=== PATIENT | female | born 1955 | race Caucasian/White ===

== ENCOUNTER 2018-05-25 10:14 | Inpatient (IN) ==
[2018-05-25] MEDS ORDERED: *HR* OxyCODONE/APAP 7.5/325 TABLET PO PRN (19:52)
[2018-05-25] MEDS: Sulfamethoxazole/Trimeth DS 1 EACH TABLET PO SCH (20:30)
[2018-05-25] MEDS: Baclofen 10 MG TABLET PO SCH (20:30)
[2018-05-26] MEDS: *HR* OxyCODONE/APAP 7.5/325 TABLET PO PRN ×4 (02:17→20:42)
[2018-05-26] MEDS: Baclofen 10 MG TABLET PO SCH ×3 (08:27→20:41)
[2018-05-26] MEDS: Sulfamethoxazole/Trimeth DS 1 EACH TABLET PO SCH ×2 (08:28→20:41)
--- NOTE | 2018-05-26 15:46 | Internal Med History&Physical ---
Date of Encounter: 05/26/18 Time of Encounter: 15:15 Assessment and Plan (1) Intertrochanteric fracture of right femur Current visit: No Status: Acute Status post intramedullary nail repair. PT and OT evaluations will be done. Lovenox be given for DVT prophylaxis. Qualifiers: Encounter type: initial encounter Fracture type: closed Fracture alignment: displaced Qualified Code(s): S72.141A - Displaced intertrochanteric fracture of right femur, initial encounter for closed fracture (2) Atrial fibrillation Current visit: No Status: Resolved Remains in NSR on sotalol. Qualifiers: Atrial fibrillation type: unspecified Qualified Code(s): I48.91 - Unspecified atrial fibrillation (3) Anemia Current visit: Yes Status: Acute Hemoglobin was normal prior to surgery. Will monitor CBC. Qualifiers: Anemia type: unspecified type Qualified Code(s): D64.9 - Anemia, unspecified (4) Hypothyroidism Current visit: No Status: Chronic Check TSH in a.m. Qualifiers: Hypothyroidism type: postablative Qualified Code(s): E89.0 - Postprocedural hypothyroidism Internal Medicine - H&P: HPI Chief complaint: Hip fracture Admitted From: Hospital to Hospital Transfer Plans for Post Hospital Care: Home History of present illness: Ms. Kothari is a 63 year old female who was hospitalized at [facility] May 22- after a fall with right intertrochanteric hip fracture. She underwent intramedullary nail fixation repair by 05/23/2018. Her postop course was unremarkable and and she was stable for discharge to [facility] swing bed May 25 for ongoing care needs. Her orthopedic history is significant for previous right total shoulder replacement. She has DJD but denies gout or other bone joint or muscle disorders. Past Med Surg Social Fam HX - Past Medical History Medical history: atrial fibrillation, GERD, migraine, thyroid disease, other Psychiatric history: anxiety, depression - Past Surgical History Surgical History: hip replacement Additional surgical history: Lap Band - Social History Smoking Status: Never smoker Smokeless Tobacco Status: No Alcohol use: none Drug use: none - Family History Mother Living Status: Hx Family Endocrine Disorder: Yes (DM) Internal Medicine - H&P: Meds Levothyroxine [Synthroid] 100 mcg PO 0630 04/06/17 [History] Omeprazole [PriLOSEC] 20 mg PO BID 04/06/17 [History] Sotalol [Betapace] 80 mg PO Q12H 04/06/17 [History] Baclofen [Lioresal] 10 mg PO TID 02/19/18 [History] Nabumetone 750 mg PO BID 02/19/18 [History] Calcium Carbonate [Tums] 500 mg PO Q8HR PRN #60 tab.chew 05/25/18 [Rx] Oxycodone HCl/Acetaminophen [Percocet 7.5-325 mg Tablet] 1 tab PO DAILY PRN 5 Days #14 tablet 05/25/18 [Rx] Sulfamethoxazole/Trimeth DS [Bactrim Ds] 1 each PO BID #10 tablet 05/25/18 [Rx] Zolpidem [Ambien] 10 mg PO HS 7 Days #7 tablet 05/25/18 [Rx] 3 Allergy/AdvReac Type Severity Reaction Status Date / Time latex Allergy Itching Verified 02/20/18 00:13 Penicillins AdvReac Redness of Verified 02/20/18 00:13 Skin All Systems PM: A 10-system review of systems was performed and is negative for pertinent findings except as documented above in the HPI. Review of systems: Gen.: Her weight has been stable at approximately 86 kg in the past year Cardiovascular: She has history of atrial fibrillation but was electrically cardioverted and has remained in NSR using sotalol. She denies hypertension MO heart failure angina DVT or pulmonary embolus. Respiratory: She is a lifelong nonsmoker and denies chronic lung disease GI: She had remote gastric bypass surgery. She had abdominal wall hernia surgical repair. She denies disorders of her liver gallbladder or exocrine pancreas. : She denies hematuria dysuria or kidney stones Neurologic: She denies large distribution strokes or seizures. Endocrine: She had hyperthyroidism and was treated with JOSHUA with resultant hypothyroidism. She is now on Synthroid. She denies diabetes or hyperlipidemia. Hematology/oncology: She denies blood disorders cancers or anemia Psychiatric: She has anxiety but denies depression or other mental health issues [place] skeletal: As per history of present illness - Constitutional Vitals: Temp Pulse Resp BP Pulse Ox 98.3 F 69 15 123/81 90 05/26/18 06:14 05/26/18 06:14 05/26/18 06:14 05/26/18 06:14 05/26/18 06:14 Exam: Gen.: She is a well developed overweight female resting comfortably in a chair at bedside. HEENT: Head is atraumatic and normocephalic. Eyes: EOMI. There is no scleral icterus. Mouth: Mucosa is moist. Neck: Supple and nontender. There is no thyromegaly or adenopathy noted. Heart: Regular without murmurs gallops or ectopics Lungs: No wheezes or crackles are heard. Abdomen: Soft and nontender. No masses or guarding are noted. Extremities: She has a surgical dressing over the right lateral hip area. There is no cyanosis edema or clubbing noted. Dorsalis pedis and posttibial pulses are trace palpable bilaterally. Neurologic: Mental status: She is talkative and a good historian. Cranial nerves: Smile is symmetric. Forehead wrinkles bilaterally. Tongue protrudes midline. EOMI. Motor: There is no pronator drift. Cerebellar: Finger to nose is intact bilaterally. Skin: Warm and dry
[2018-05-26] MEDS: Acetaminophen 325 MG TABLET PO SCH (17:58)
[2018-05-27] MEDS: Acetaminophen 325 MG TABLET PO SCH ×4 (00:18→17:03)
[2018-05-27] MEDS: *HR* Enoxaparin 40 MG/0.4 ML SYRINGE SQ SCH (06:03)
[2018-05-27 06:15] LABS: Basophils % 0.4 %; Eosinophils # 0.4 K/mcL (0.0-0.6); Eosinophils % 4.9 %; Hematocrit 33.5 % (35.3-44.9); Hemoglobin 10.7 g/dL (11.5-15.4); Immature Granulocytes % 0.3 % (0-4); Lymphocytes # 1.9 K/mcL (0.6-4.6); Lymphocytes % 21.4 %; Mean Corpuscular HGB Conc 31.9 g/dL (31.6-35.5); Mean Corpuscular Hemoglobin 28.7 pg (28.0-33.3); Mean Corpuscular Volume 89.8 fL (83.0-100.0); Mean Platelet Volume 11.2 fL (9.4-12.4); Monocytes # 0.7 K/mcL (0.0-1.3); Monocytes % 7.8 %; Neutrophils # 5.8 K/mcL (1.6-8.9); Platelet Count 245 K/mcL (140-400); Red Blood Count 3.73 M/mcL (3.82-4.97); Red Cell Distribution Width 15.7 % (11.5-14.5); Segmented Neutrophils % 65.2 %
[2018-05-27 06:36] LABS: BUN/Creatinine Ratio 20 (6-26); Blood Urea Nitrogen 19 mg/dL (8-23); Calcium 8.6 mg/dL (8.6-10.3); Carbon Dioxide 31 mEq/L (23-29); Chloride 101 mEq/L (98-107); Glucose 105 mg/dL (70-105); Osmolality,Calculated 285 (280-300); Potassium 4.6 mEq/L (3.5-5.1); Sodium 136 mEq/L (136-145); eGFR For Non-African Americans > 60 (> 60)
[2018-05-27 06:46] LABS: Thyroid Stimulating Hormone 2.979 mcIU/mL (0.340-5.600)
[2018-05-27] MEDS: Sulfamethoxazole/Trimeth DS 1 EACH TABLET PO SCH ×2 (08:05→20:05)
[2018-05-27] MEDS: Baclofen 10 MG TABLET PO SCH ×3 (08:06→20:05)
[2018-05-27 10:20] LABS: % Iron Saturation 21 % (15-50); Iron 75 mcg/dL (50-170); Transferrin 250 mg/dL (203-362)
[2018-05-27 10:39] LABS: Ferritin 32 ng/mL (10-120)
[2018-05-27 10:44] LABS: Folate 8.4 ng/mL (3.0-16.0)
[2018-05-27] MEDS: *HR* OxyCODONE/APAP 7.5/325 TABLET PO PRN ×2 (13:15→20:05)
--- NOTE | 2018-05-27 13:38 | Internal Med Progress Note ---
Date of Encounter: 05/27/18 Time of Encounter: 13:30 - Assessment and plan (1) Intertrochanteric fracture of right femur Current Visit: No Status: Acute Assessment and plan: May 27. Status post intramedullary nail repair. Continue PT and OT intervention with Lovenox. Qualifiers: Encounter type: initial encounter Fracture type: closed Fracture alignment: displaced Qualified Code(s): S72.141A - Displaced intertrochanteric fracture of right femur, initial encounter for closed fracture (2) Atrial fibrillation Current Visit: No Status: Resolved Assessment and plan: May 27. Continue sotalol. Qualifiers: Atrial fibrillation type: unspecified Qualified Code(s): I48.91 - Unspecified atrial fibrillation (3) Anemia Current Visit: Yes Status: Acute Assessment and plan: May 27. Hemoglobin stable at 10.7. Continue to monitor. Qualifiers: Anemia type: unspecified type Qualified Code(s): D64.9 - Anemia, unspecified (4) Hypothyroidism Current Visit: No Status: Chronic Assessment and plan: May 27. TSH normal at 2.979. Continue Synthroid. Qualifiers: Hypothyroidism type: postablative Qualified Code(s): E89.0 - Postprocedural hypothyroidism - Subjective Interval history: May 27. She has no new complaints. She states her pain continues to lessen. She has ambulated to the bathroom today. - Constitutional Vitals: Temp Pulse Resp BP Pulse Ox 98.6 F 64 18 157/74 96 05/27/18 11:13 05/27/18 11:13 05/27/18 11:13 05/27/18 11:13 05/27/18 11:13 Exam: She is resting comfortably in bed and appears in no acute distress. Her affect is bright and cheerful. I reviewed her medications and lab results. Internal Medicine: Result - Labs CBC & Chem 7: 05/27/18 05:30 05/27/18 05:30 Labs: Short CBC 05/27/18 Range/Units 05:30 WBC 9.0 (4.3-11.1) K/mcL Hgb 10.7 L (11.5-15.4) g/dL Hct 33.5 L (35.3-44.9) % Plt Count 245 (140-400) K/mcL Neutrophils # 5.8 (1.6-8.9) K/mcL BMP 05/27/18 05:30 Sodium 136 Potassium 4.6 Chloride 101 Carbon Dioxide 31 H BUN 19 Creatinine 0.94 Glucose 105 Calcium 8.6 Consult Discharge Plan - Plan Referrals: Tory Prince MD [Primary Care Provider] - 1 week
[2018-05-28] MEDS: Acetaminophen 325 MG TABLET PO SCH ×4 (02:09→17:24)
[2018-05-28] MEDS: *HR* OxyCODONE/APAP 7.5/325 TABLET PO PRN ×4 (02:10→20:19)
[2018-05-28] MEDS: *HR* Enoxaparin 40 MG/0.4 ML SYRINGE SQ SCH (06:12)
[2018-05-28] MEDS: Baclofen 10 MG TABLET PO SCH ×3 (08:16→20:20)
[2018-05-28] MEDS: Sulfamethoxazole/Trimeth DS 1 EACH TABLET PO SCH ×2 (08:16→20:19)
[2018-05-29] MEDS: *HR* OxyCODONE/APAP 7.5/325 TABLET PO PRN ×3 (03:22→16:40)
[2018-05-29] MEDS: Acetaminophen 325 MG TABLET PO SCH ×4 (03:25→16:39)
[2018-05-29] MEDS: *HR* Enoxaparin 40 MG/0.4 ML SYRINGE SQ SCH (06:17)
[2018-05-29] MEDS: Baclofen 10 MG TABLET PO SCH ×3 (08:27→21:09)
[2018-05-29] MEDS: Sulfamethoxazole/Trimeth DS 1 EACH TABLET PO SCH (08:27)
--- NOTE | 2018-05-29 20:06 | Internal Med Progress Note ---
Date of Encounter: 05/29/18 Time of Encounter: 19:55 - Assessment and plan (1) Intertrochanteric fracture of right femur Current Visit: No Status: Acute Assessment and plan: May 27. Status post intramedullary nail repair. Continue PT and OT intervention with Lovenox. Qualifiers: Encounter type: initial encounter Fracture type: closed Fracture alignment: displaced Qualified Code(s): S72.141A - Displaced intertrochanteric fracture of right femur, initial encounter for closed fracture (2) Atrial fibrillation Current Visit: No Status: Resolved Assessment and plan: May 27. Continue sotalol. Qualifiers: Atrial fibrillation type: unspecified Qualified Code(s): I48.91 - Unspecified atrial fibrillation (3) Anemia Current Visit: Yes Status: Acute Assessment and plan: May 27. Hemoglobin stable at 10.7. Continue to monitor. Qualifiers: Anemia type: unspecified type Qualified Code(s): D64.9 - Anemia, unspecified (4) Hypothyroidism Current Visit: No Status: Chronic Assessment and plan: May 27. TSH normal at 2.979. Continue Synthroid. Qualifiers: Hypothyroidism type: postablative Qualified Code(s): E89.0 - Postprocedural hypothyroidism - Subjective Interval history: May 27. She has no new complaints. She states her pain continues to lessen. She has ambulated to the bathroom today. May 29. She reports pain in her right knee. She was told by the orthopedist she would need knee replacement because of severe DJD. She sustained hip fracture before the knee surgery could be done. - Constitutional Vitals: Temp Pulse Resp BP Pulse Ox 97.2 F L 93 18 140/79 96 05/29/18 19:00 05/29/18 19:00 05/29/18 19:00 05/29/18 19:00 05/29/18 19:00 Exam: She is resting comfortably in a chair at bedside. Her affect is overall cheerful. I reviewed her medications and lab results. Internal Medicine: Result - Labs CBC & Chem 7: 05/27/18 05:30 05/27/18 05:30 Consult Discharge Plan - Plan Referrals: Tory Prince MD [Primary Care Provider] - 1 week
[2018-05-29] MEDS: traZODone 50 MG TABLET PO SCH (21:09)
[2018-05-30] MEDS: *HR* OxyCODONE/APAP 7.5/325 TABLET PO PRN ×5 (00:27→20:11)
[2018-05-30] MEDS: Acetaminophen 325 MG TABLET PO SCH ×4 (02:10→17:55)
[2018-05-30] MEDS: *HR* Enoxaparin 40 MG/0.4 ML SYRINGE SQ SCH (05:30)
[2018-05-30] MEDS: Baclofen 10 MG TABLET PO SCH ×3 (08:15→20:11)
[2018-05-30] MEDS: traZODone 50 MG TABLET PO SCH (20:11)
[2018-05-31] MEDS: Acetaminophen 325 MG TABLET PO SCH ×4 (00:16→17:47)
[2018-05-31] MEDS: *HR* OxyCODONE/APAP 7.5/325 TABLET PO PRN ×4 (03:39→20:28)
[2018-05-31 05:46] LABS: Basophils # 0.1 K/mcL (0.0-0.2); Basophils % 0.6 %; Eosinophils # 0.5 K/mcL (0.0-0.6); Eosinophils % 4.5 %; Hematocrit 34.5 % (35.3-44.9); Hemoglobin 11.2 g/dL (11.5-15.4); Immature Granulocytes % 0.7 % (0-4); Lymphocytes # 1.9 K/mcL (0.6-4.6); Lymphocytes % 17.4 %; Mean Corpuscular HGB Conc 32.5 g/dL (31.6-35.5); Mean Corpuscular Hemoglobin 29.8 pg (28.0-33.3); Mean Corpuscular Volume 91.8 fL (83.0-100.0); Mean Platelet Volume 10.7 fL (9.4-12.4); Monocytes # 0.8 K/mcL (0.0-1.3); Monocytes % 7.6 %; Neutrophils # 7.4 K/mcL (1.6-8.9); Platelet Count 282 K/mcL (140-400); Red Blood Count 3.76 M/mcL (3.82-4.97); Red Cell Distribution Width 16.5 % (11.5-14.5); Segmented Neutrophils % 69.2 %
[2018-05-31] MEDS: *HR* Enoxaparin 40 MG/0.4 ML SYRINGE SQ SCH (06:02)
[2018-05-31 06:18] LABS: Alanine Aminotransferase 13 Units/L (7-52); Alkaline Phosphatase 115 Units/L (34-104); Aspartate Amino Transferase 22 Units/L (13-39); BUN/Creatinine Ratio 26 (6-26); Bilirubin,Total 0.5 mg/dL (0.3-1.0); Blood Urea Nitrogen 24 mg/dL (8-23); Calcium 8.7 mg/dL (8.6-10.3); Carbon Dioxide 28 mEq/L (23-29); Chloride 100 mEq/L (98-107); Globulin 2.9 g/dL (2.4-3.5); Glucose 115 mg/dL (70-105); Osmolality,Calculated 281 (280-300); Potassium 4.8 mEq/L (3.5-5.1); Sodium 133 mEq/L (136-145); Total Protein 5.9 g/dL (6.4-8.9); eGFR For Non-African Americans > 60 (> 60)
[2018-05-31] MEDS: Baclofen 10 MG TABLET PO SCH ×3 (08:30→20:18)
[2018-05-31] MEDS: traZODone 50 MG TABLET PO SCH (20:19)
[2018-06-01] MEDS: *HR* OxyCODONE/APAP 7.5/325 TABLET PO PRN ×6 (00:43→21:36)
[2018-06-01] MEDS: Acetaminophen 325 MG TABLET PO SCH ×4 (02:45→18:25)
[2018-06-01] MEDS: *HR* Enoxaparin 40 MG/0.4 ML SYRINGE SQ SCH (05:53)
[2018-06-01] MEDS: Baclofen 10 MG TABLET PO SCH ×3 (08:39→21:35)
--- NOTE | 2018-06-01 11:09 | Internal Med Progress Note ---
Date of Encounter: 06/01/18 Time of Encounter: 11:00 - Assessment and plan (1) Intertrochanteric fracture of right femur Current Visit: No Status: Acute Assessment and plan: May 27. Status post intramedullary nail repair. Continue PT and OT intervention with Lovenox. Qualifiers: Encounter type: initial encounter Fracture type: closed Fracture alignment: displaced Qualified Code(s): S72.141A - Displaced intertrochanteric fracture of right femur, initial encounter for closed fracture (2) Atrial fibrillation Current Visit: No Status: Resolved Assessment and plan: May 27. Continue sotalol. Qualifiers: Atrial fibrillation type: unspecified Qualified Code(s): I48.91 - Unspecified atrial fibrillation (3) Anemia Current Visit: Yes Status: Acute Assessment and plan: May 27. Hemoglobin stable at 10.7. Continue to monitor. June 01. Hemoglobin improved to 11.2. Continue to monitor. Qualifiers: Anemia type: unspecified type Qualified Code(s): D64.9 - Anemia, unspecified (4) Hypothyroidism Current Visit: No Status: Chronic Assessment and plan: May 27. TSH normal at 2.979. Continue Synthroid. Qualifiers: Hypothyroidism type: postablative Qualified Code(s): E89.0 - Postprocedural hypothyroidism (5) Knee pain, right Current Visit: No Status: Chronic Assessment and plan: June 01. Continue Percocet and Relafen. Will add BenGay and Lidoderm patch to knee. Qualifiers: Chronicity: chronic Qualified Code(s): M25.561 - Pain in right knee; G89.29 - Other chronic pain (6) Anxiety Current Visit: Yes Status: Acute Assessment and plan: June 01. Add Ativan prn. - Subjective Interval history: May 27. She has no new complaints. She states her pain continues to lessen. She has ambulated to the bathroom today. May 29. She reports pain in her right knee. She was told by the orthopedist she would need knee replacement because of severe DJD. She sustained hip fracture before the knee surgery could be done. June 01. She saw the orthopedist yesterday and received a cortisone injection in the right knee. I was told by nursing that she is now nonweightbearing because of right knee deterioration. She did not know the duration of nonweightbearing status. She is still having significant pain in the knee intermittently. She complains of being anxious and states she took Ativan prior to hospitalization for hip fracture repair. - Constitutional Vitals: Temp Pulse Resp BP Pulse Ox 98.6 F 66 18 135/69 94 06/01/18 07:15 06/01/18 07:15 06/01/18 07:15 06/01/18 07:15 06/01/18 09:37 Exam: She is resting comfortably in bed and appears in no severe distress at present time. She is occasional sad and emotional in our discussion. I reviewed her medications and lab results. Internal Medicine: Result - Labs CBC & Chem 7: 05/31/18 05:41 05/31/18 05:41 Consult Discharge Plan - Plan Referrals: Tory Prince MD [Primary Care Provider] - 1 week
[2018-06-01] MEDS: *HR* LORazepam 0.5 MG TABLET PO PRN ×2 (12:11→20:07)
[2018-06-01] MEDS: Methyl Salicylate/Menthol 28 GM TUBE TP SCH (12:12)
[2018-06-01] MEDS: traZODone 50 MG TABLET PO SCH (21:35)
[2018-06-02] MEDS: *HR* OxyCODONE/APAP 7.5/325 TABLET PO PRN ×5 (02:11→21:43)
[2018-06-02] MEDS: Acetaminophen 325 MG TABLET PO SCH ×4 (04:49→15:59)
[2018-06-02] MEDS: *HR* LORazepam 0.5 MG TABLET PO PRN ×5 (04:50→21:44)
[2018-06-02] MEDS: *HR* Enoxaparin 40 MG/0.4 ML SYRINGE SQ SCH (04:50)
[2018-06-02] MEDS: Methyl Salicylate/Menthol 28 GM TUBE TP SCH (09:11)
[2018-06-02] MEDS: Baclofen 10 MG TABLET PO SCH ×3 (09:11→21:44)
[2018-06-02] MEDS: traZODone 50 MG TABLET PO SCH (21:44)
[2018-06-03] MEDS: *HR* Enoxaparin 40 MG/0.4 ML SYRINGE SQ SCH (06:47)
[2018-06-03] MEDS: Acetaminophen 325 MG TABLET PO SCH ×4 (06:47→17:11)
[2018-06-03] MEDS: *HR* OxyCODONE/APAP 7.5/325 TABLET PO PRN ×4 (08:39→21:06)
[2018-06-03] MEDS: Methyl Salicylate/Menthol 28 GM TUBE TP SCH (08:40)
[2018-06-03] MEDS: Baclofen 10 MG TABLET PO SCH ×3 (08:40→21:06)
[2018-06-03] MEDS: *HR* LORazepam 0.5 MG TABLET PO PRN ×3 (12:24→21:06)
--- NOTE | 2018-06-03 16:21 | Internal Med Progress Note ---
Date of Encounter: 06/03/18 Time of Encounter: 16:10 - Assessment and plan (1) Intertrochanteric fracture of right femur Current Visit: No Status: Acute Assessment and plan: May 27. Status post intramedullary nail repair. Continue PT and OT intervention with Lovenox. Qualifiers: Encounter type: initial encounter Fracture type: closed Fracture alignment: displaced Qualified Code(s): S72.141A - Displaced intertrochanteric fracture of right femur, initial encounter for closed fracture (2) Atrial fibrillation Current Visit: No Status: Chronic Assessment and plan: May 27. Continue sotalol. Qualifiers: Atrial fibrillation type: unspecified Qualified Code(s): I48.91 - Unspecified atrial fibrillation (3) Anemia Current Visit: Yes Status: Acute Assessment and plan: May 27. Hemoglobin stable at 10.7. Continue to monitor. June 01. Hemoglobin improved to 11.2. Continue to monitor. Qualifiers: Anemia type: unspecified type Qualified Code(s): D64.9 - Anemia, unspecified (4) Hypothyroidism Current Visit: No Status: Chronic Assessment and plan: May 27. TSH normal at 2.979. Continue Synthroid. Qualifiers: Hypothyroidism type: postablative Qualified Code(s): E89.0 - Postprocedural hypothyroidism (5) Knee pain, right Current Visit: No Status: Chronic Assessment and plan: June 01. Continue Percocet and Relafen. Will add BenGay and Lidoderm patch to knee. June 03. Pain has slightly lessened with addition of BenGay and Lidoderm. Continue present regimen. Qualifiers: Chronicity: chronic Qualified Code(s): M25.561 - Pain in right knee; G89.29 - Other chronic pain (6) Anxiety Current Visit: Yes Status: Acute Assessment and plan: June 01. Add Ativan prn. - Subjective Interval history: May 27. She has no new complaints. She states her pain continues to lessen. She has ambulated to the bathroom today. May 29. She reports pain in her right knee. She was told by the orthopedist she would need knee replacement because of severe DJD. She sustained hip fracture before the knee surgery could be done. June 01. She saw the orthopedist yesterday and received a cortisone injection in the right knee. I was told by nursing that she is now nonweightbearing because of right knee deterioration. She did not know the duration of nonweightbearing status. She is still having significant pain in the knee intermittently. She complains of being anxious and states she took Ativan prior to hospitalization for hip fracture repair. June 03. She has no new complaints. - Constitutional Vitals: Temp Pulse Resp BP Pulse Ox 97.8 F 65 18 129/61 95 06/03/18 07:30 06/03/18 07:30 06/03/18 07:30 06/03/18 07:30 06/03/18 07:30 Exam: She is resting comfortably in bed and appears in no acute distress. She became tearful when she discussed her autistic grandson scheduled to receive a blair retriever therapy dog in 2 weeks. She stated she hoped she can be discharged before then to be there when the dog arrives. I reviewed her medications and lab results. Internal Medicine: Result - Labs CBC & Chem 7: 05/31/18 05:41 05/31/18 05:41 Consult Discharge Plan - Plan Referrals: Tory Prince MD [Primary Care Provider] - 1 week
[2018-06-03] MEDS: traZODone 50 MG TABLET PO SCH (21:06)
[2018-06-04] MEDS: *HR* OxyCODONE/APAP 7.5/325 TABLET PO PRN ×5 (03:02→21:01)
[2018-06-04] MEDS: Acetaminophen 325 MG TABLET PO SCH ×4 (06:13→17:15)
[2018-06-04] MEDS: *HR* Enoxaparin 40 MG/0.4 ML SYRINGE SQ SCH (06:14)
[2018-06-04] MEDS: *HR* LORazepam 0.5 MG TABLET PO PRN ×3 (07:57→17:15)
[2018-06-04] MEDS: Baclofen 10 MG TABLET PO SCH ×3 (07:57→21:01)
[2018-06-04] MEDS: Methyl Salicylate/Menthol 28 GM TUBE TP SCH (07:59)
[2018-06-04] MEDS: traZODone 50 MG TABLET PO SCH (21:01)
[2018-06-05] MEDS: Acetaminophen 325 MG TABLET PO SCH ×4 (01:38→17:38)
[2018-06-05] MEDS: *HR* LORazepam 0.5 MG TABLET PO PRN ×4 (01:42→20:01)
[2018-06-05] MEDS: *HR* OxyCODONE/APAP 7.5/325 TABLET PO PRN ×5 (01:42→20:00)
[2018-06-05] MEDS: *HR* Enoxaparin 40 MG/0.4 ML SYRINGE SQ SCH (06:10)
[2018-06-05] MEDS: Methyl Salicylate/Menthol 28 GM TUBE TP SCH (07:35)
[2018-06-05] MEDS: Baclofen 10 MG TABLET PO SCH ×3 (07:35→20:01)
--- NOTE | 2018-06-05 10:25 | Internal Med Progress Note ---
Date of Encounter: 06/05/18 Time of Encounter: 10:15 - Assessment and plan (1) Intertrochanteric fracture of right femur Current Visit: No Status: Acute Assessment and plan: May 27. Status post intramedullary nail repair. Continue PT and OT intervention with Lovenox. Qualifiers: Encounter type: initial encounter Fracture type: closed Fracture alignment: displaced Qualified Code(s): S72.141A - Displaced intertrochanteric fracture of right femur, initial encounter for closed fracture (2) Atrial fibrillation Current Visit: No Status: Chronic Assessment and plan: May 27. Continue sotalol. Qualifiers: Atrial fibrillation type: unspecified Qualified Code(s): I48.91 - Unspecified atrial fibrillation (3) Anemia Current Visit: Yes Status: Acute Assessment and plan: May 27. Hemoglobin stable at 10.7. Continue to monitor. June 01. Hemoglobin improved to 11.2. Continue to monitor. Qualifiers: Anemia type: unspecified type Qualified Code(s): D64.9 - Anemia, unspecified (4) Hypothyroidism Current Visit: No Status: Chronic Assessment and plan: May 27. TSH normal at 2.979. Continue Synthroid. Qualifiers: Hypothyroidism type: postablative Qualified Code(s): E89.0 - Postprocedural hypothyroidism (5) Knee pain, right Current Visit: No Status: Chronic Assessment and plan: June 01. Continue Percocet and Relafen. Will add BenGay and Lidoderm patch to knee. June 03. Pain has slightly lessened with addition of BenGay and Lidoderm. Continue present regimen. June 05. She states she will be seeing orthopedist tomorrow about her knee pain. Continue present regimen. Qualifiers: Chronicity: chronic Qualified Code(s): M25.561 - Pain in right knee; G89.29 - Other chronic pain (6) Anxiety Current Visit: Yes Status: Acute Assessment and plan: June 01. Add Ativan prn. June 05. Improved. Continue Ativan. - Subjective Interval history: May 27. She has no new complaints. She states her pain continues to lessen. She has ambulated to the bathroom today. May 29. She reports pain in her right knee. She was told by the orthopedist she would need knee replacement because of severe DJD. She sustained hip fracture before the knee surgery could be done. June 01. She saw the orthopedist yesterday and received a cortisone injection in the right knee. I was told by nursing that she is now nonweightbearing because of right knee deterioration. She did not know the duration of nonweightbearing status. She is still having significant pain in the knee intermittently. She complains of being anxious and states she took Ativan prior to hospitalization for hip fracture repair. June 03. She has no new complaints. June 05. She has no new complaints. Clarification was obtained yesterday by nursing staff that she is weightbearing as tolerated on her right knee. She states her hip pain is very minimal. - Constitutional Vitals: Temp Pulse Resp BP Pulse Ox 98.3 F 63 16 164/66 94 06/05/18 07:19 06/05/18 07:19 06/05/18 07:19 06/05/18 07:19 06/05/18 07:19 Exam: She is resting comfortably in a chair at bedside and appears in no acute distress. Her affect is bright and cheerful. Heart is regular without murmurs gallops or ectopics. I reviewed her medications and lab results. Internal Medicine: Result - Labs CBC & Chem 7: 05/31/18 05:41 05/31/18 05:41 Consult Discharge Plan - Plan Referrals: Tory Prince MD [Primary Care Provider] - 1 week
[2018-06-05] MEDS: traZODone 50 MG TABLET PO SCH (20:01)
[2018-06-06] MEDS: Acetaminophen 325 MG TABLET PO SCH ×4 (00:53→17:49)
[2018-06-06] MEDS: *HR* OxyCODONE/APAP 7.5/325 TABLET PO PRN ×4 (04:42→22:19)
[2018-06-06] MEDS: *HR* LORazepam 0.5 MG TABLET PO PRN ×3 (04:45→22:20)
[2018-06-06] MEDS: *HR* Enoxaparin 40 MG/0.4 ML SYRINGE SQ SCH (06:33)
[2018-06-06] MEDS: Baclofen 10 MG TABLET PO SCH ×3 (09:12→21:23)
[2018-06-06] MEDS: Methyl Salicylate/Menthol 28 GM TUBE TP SCH (09:19)
--- NOTE | 2018-06-06 17:22 | Internal Med Progress Note ---
Date of Encounter: 06/06/18 Time of Encounter: 17:10 - Assessment and plan (1) Intertrochanteric fracture of right femur Current Visit: No Status: Acute Assessment and plan: May 27. Status post intramedullary nail repair. Continue PT and OT intervention with Lovenox. June 06. She will be admitted to [facility] June 08 for surgical revision. Qualifiers: Encounter type: initial encounter Fracture type: closed Fracture alignment: displaced Qualified Code(s): S72.141A - Displaced intertrochanteric fracture of right femur, initial encounter for closed fracture (2) Atrial fibrillation Current Visit: No Status: Chronic Assessment and plan: May 27. Continue sotalol. Qualifiers: Atrial fibrillation type: unspecified Qualified Code(s): I48.91 - Unspecified atrial fibrillation (3) Anemia Current Visit: Yes Status: Acute Assessment and plan: May 27. Hemoglobin stable at 10.7. Continue to monitor. June 01. Hemoglobin improved to 11.2. Continue to monitor. Qualifiers: Anemia type: unspecified type Qualified Code(s): D64.9 - Anemia, unspecified (4) Hypothyroidism Current Visit: No Status: Chronic Assessment and plan: May 27. TSH normal at 2.979. Continue Synthroid. Qualifiers: Hypothyroidism type: postablative Qualified Code(s): E89.0 - Postprocedural hypothyroidism (5) Knee pain, right Current Visit: No Status: Chronic Assessment and plan: June 01. Continue Percocet and Relafen. Will add BenGay and Lidoderm patch to knee. June 03. Pain has slightly lessened with addition of BenGay and Lidoderm. Continue present regimen. June 05. She states she will be seeing orthopedist tomorrow about her knee pain. Continue present regimen. Qualifiers: Chronicity: chronic Qualified Code(s): M25.561 - Pain in right knee; G89.29 - Other chronic pain (6) Anxiety Current Visit: Yes Status: Acute Assessment and plan: June 01. Add Ativan prn. June 05. Improved. Continue Ativan. - Subjective Interval history: May 27. She has no new complaints. She states her pain continues to lessen. She has ambulated to the bathroom today. May 29. She reports pain in her right knee. She was told by the orthopedist she would need knee replacement because of severe DJD. She sustained hip fracture before the knee surgery could be done. June 01. She saw the orthopedist yesterday and received a cortisone injection in the right knee. I was told by nursing that she is now nonweightbearing because of right knee deterioration. She did not know the duration of nonweightbearing status. She is still having significant pain in the knee intermittently. She complains of being anxious and states she took Ativan prior to hospitalization for hip fracture repair. June 03. She has no new complaints. June 05. She has no new complaints. Clarification was obtained yesterday by nursing staff that she is weightbearing as tolerated on her right knee. She states her hip pain is very minimal. June 06. She saw the orthopedist today. X-rays showed unchanged knee appearance but advancement of the proximal screw traversing the femoral neck extending toward the acetabulum. - Constitutional Vitals: Temp Pulse Resp BP Pulse Ox 98.5 F 59 20 129/72 98 06/06/18 14:39 06/06/18 14:39 06/06/18 14:39 06/06/18 14:39 06/06/18 14:39 Exam: She is resting comfortably in bed and appears in no acute distress. Her affect is overall cheerful. I reviewed her medications and lab results. Internal Medicine: Result - Labs CBC & Chem 7: 05/31/18 05:41 05/31/18 05:41 Consult Discharge Plan - Plan Referrals: Tory Prince MD [Primary Care Provider] - 1 week
[2018-06-06] MEDS: traZODone 50 MG TABLET PO SCH (21:23)
[2018-06-07] MEDS: Acetaminophen 325 MG TABLET PO SCH ×4 (01:16→17:15)
[2018-06-07] MEDS: *HR* Enoxaparin 40 MG/0.4 ML SYRINGE SQ SCH (06:30)
[2018-06-07] MEDS: Methyl Salicylate/Menthol 28 GM TUBE TP SCH (09:07)
[2018-06-07] MEDS: Baclofen 10 MG TABLET PO SCH ×3 (09:07→21:16)
[2018-06-07] MEDS: *HR* LORazepam 0.5 MG TABLET PO PRN ×2 (12:14→21:16)
[2018-06-07] MEDS: *HR* OxyCODONE/APAP 7.5/325 TABLET PO PRN ×3 (12:14→21:16)
[2018-06-07] MEDS ORDERED: *HR* LORazepam 0.5 MG TABLET PO ONE (14:09)
[2018-06-07] MEDS ORDERED: ALPRAZolam 0.5 MG TABLET PO ONE (14:20)
[2018-06-07] MEDS: traZODone 50 MG TABLET PO SCH (21:16)
[2018-06-08] MEDS: Acetaminophen 325 MG TABLET PO SCH ×3 (00:19→13:30)
[2018-06-08] MEDS: *HR* LORazepam 0.5 MG TABLET PO PRN ×2 (03:46→07:55)
[2018-06-08] MEDS: *HR* OxyCODONE/APAP 7.5/325 TABLET PO PRN ×3 (03:46→12:18)
[2018-06-08] MEDS: *HR* Enoxaparin 40 MG/0.4 ML SYRINGE SQ SCH (06:08)
[2018-06-08 06:33] VITALS: BP 128/63
--- NOTE | 2018-06-08 10:26 | Discharge Summary ---
Date of Encounter: 06/08/18 Time of Encounter: 10:12 - Discharge Diagnosis (1) Intertrochanteric fracture of right femur Priority: Primary Status: Acute Qualifiers: Encounter type: initial encounter Fracture type: closed Fracture alignment: displaced Qualified Code(s): S72.141A - Displaced intertrochanteric fracture of right femur, initial encounter for closed fracture (2) Atrial fibrillation Priority: Secondary Status: Chronic Qualifiers: Atrial fibrillation type: unspecified Qualified Code(s): I48.91 - Unspecified atrial fibrillation (3) Anemia Priority: Secondary Status: Acute Qualifiers: Anemia type: unspecified type Qualified Code(s): D64.9 - Anemia, unspecified (4) Hypothyroidism Priority: Secondary Status: Chronic Qualifiers: Hypothyroidism type: postablative Qualified Code(s): E89.0 - Postprocedural hypothyroidism (5) Knee pain, right Priority: Secondary Status: Chronic Qualifiers: Chronicity: chronic Qualified Code(s): M25.561 - Pain in right knee; G89.29 - Other chronic pain (6) Anxiety Priority: Secondary Status: Acute Hospital course: Ms. Kothari is a 63 year old female who was hospitalized at [facility] May 22- after a fall with right intertrochanteric hip fracture. She underwent intramedullary nail fixation repair by 05/23/2018. Her postop course was unremarkable and and she was stable for discharge to [facility] swing bed May 25 for ongoing care needs. Initial orders were written by the discharging physician at [facility]. I saw her May 26 and performed a swing bed history and physical. She had physical therapy and occupational therapy evaluations with ongoing intervention. Lovenox was given for DVT prophylaxis. She complained of intermittent pain in the right hip and significant pain in the right knee. Knee x-rays done 2017 showing significant degenerative joint changes were reviewed with patient. She saw the orthopedist and received an injection in the right knee with minimal pain improvement. She had ongoing pain in her right hip. X-rays on June 06 showed further impaction fracture with displacement of the lesser trochanteric fragment and advancement of the proximal screw traversing the femoral neck extending beyond the femoral head towards acetabulum. Right hip CT June 07 showed right femoral hyper dense fluid collection measuring up to 4 x 8.2 cm suggesting postoperative hematoma. Upon reviewing these films the orthopedist felt surgical repair was needed. The patient was transferred to [facility] on June 08 for this procedure. - Time Spent with Patient Total time spent providing and/or coordinating discharge services: - Discharge Medications Home Medications: Levothyroxine [Synthroid] 100 mcg PO 0630 04/06/17 [History] Omeprazole [PriLOSEC] 20 mg PO BID 04/06/17 [History] Sotalol [Betapace] 80 mg PO Q12H 04/06/17 [History] Baclofen [Lioresal] 10 mg PO TID 02/19/18 [History] Nabumetone 750 mg PO BID 02/19/18 [History] Calcium Carbonate [Tums] 500 mg PO Q8HR PRN #60 tab.chew 05/25/18 [Rx] Oxycodone HCl/Acetaminophen [Percocet 7.5-325 mg Tablet] 1 tab PO DAILY PRN 5 Days #14 tablet 05/25/18 [Rx] Sulfamethoxazole/Trimeth DS [Bactrim Ds] 1 each PO BID #10 tablet 05/25/18 [Rx] Zolpidem [Ambien] 10 mg PO HS 7 Days #7 tablet 05/25/18 [Rx] Allergies/Adverse Reactions: 3 Allergy/AdvReac Type Severity Reaction Status Date / Time latex Allergy Itching Verified 02/20/18 00:13 Penicillins AdvReac Redness of Verified 02/20/18 00:13 Skin Date of admission: 05/25/18 17:14 Primary care physician: Tory Prince MD - Constitutional Vitals: Temp Pulse Resp BP Pulse Ox 98.1 F 61 20 128/63 94 06/08/18 06:31 06/08/18 06:31 06/08/18 06:31 06/08/18 06:31 06/08/18 06:31 - Patient Status Disposition: Transfer Other - Discharge Instructions Follow Up With: Tory Prince MD [Primary Care Provider] - 1 week
[2018-06-08] MEDS: Methyl Salicylate/Menthol 28 GM TUBE TP SCH (13:28)
[2018-06-08] MEDS: Baclofen 10 MG TABLET PO SCH (13:29)
== END 2018-06-08 12:30 | disposition other institution (70) | DRG 560 ==
LOC: INPPIK 17:14
PROVIDERS: ADMIT Internal Medicine; ATTEND Internal Medicine